=== PATIENT | male | born 1965 | race Caucasian/White ===

== ENCOUNTER 2019-07-20 12:23 | Outpatient (CLI) | payer BC, SELFPAY ==
--- NOTE | 2019-07-20 12:56 | ECHO_ITS ---
Patient Info Name: Telly Granger Age: 54 years : 1965 Gender: Male Ht: 69 in Wt: 220 lbs BSA: 2.24 m2 HR: 70 bpm BP: 138 / 77 mmHg Heart Rhythm: Sinus Rhythm Technical Quality: Fair Exam Date: 07/20/2019 1:01 PM Exam Location: [facility] Patient Status: Outpatient Admit Date: 07/20/2019 Staff Ordering Physician: Ann Morales MD Underwriter: Josh Wilson RDCS Attending Provider: Ann Morales MD Referring Physician: Carmen WADDELL; Exam Type: CA echo doppler color flow Study Info Indications R06.02 - Shortness of breath Complete two-dimensional, color flow and Doppler transthoracic echocardiogram is performed. Strain analysis performed. History/Risk Factors Shortness of breath. Summary 1. Left ventricular chamber dimension is normal. 2. Left ventricular systolic function is normal, estimated at 60-65%. 3. The left ventricular diastolic function is normal. 4. E/e' 8 is minimally elevated. 5. Global longitudinal strain is normal at -17.8%. 6. There is trivial pericardial effusion. Left Ventricle E/e' 8 is minimally elevated. Global longitudinal strain is normal at -17.8%. Left ventricular chamber dimension is normal. Left ventricular systolic function is normal, estimated at 60-65%. The left ventricular diastolic function is normal. Right Ventricle Right ventricular chamber dimension is normal. Right ventricular systolic function is normal. Left Atria Left atrial chamber dimension is normal. Right Atria Right atrial chamber dimension is normal. Aortic Valve The aortic valve is probable trileaflet. There is no aortic valve stenosis. There is no aortic valve regurgitation. Pulmonic Valve There is no pulmonic regurgitation. Mitral Valve There is no mitral valve stenosis. There is no mitral valve regurgitation. Tricuspid Valve There is no tricuspid valve regurgitation. Pericardium/Pleural There is trivial pericardial effusion. Inferior Vena Cava Normal inferior vena cava with >50% collapse upon inspiration consistent with normal right atrial pressure, 5 mmHg. Aorta The aortic root size at the sinus of Valsalva is normal. Left Ventricular Outflow Tract Name Value Normal LVOT 2D LVOT Diameter 2.0 cm LVOT Doppler LVOT Peak Gradient 5 mmHg LVOT Mean Gradient 2 mmHg LVOT VTI 22 cm LVOT VTI/AV VTI Ratio 0.8 LVOT Stroke Volume 72 ml LVOT CO 4.7 l/min LVOT CI 2.1 l/min/m2 Mitral Valve Name Value Normal MV Doppler MV [place] 394 cm/s2 MV PHT 63 ms MV Area (PHT)
== END 2019-07-20 12:24 | disposition home or self-care (01) ==
PROVIDERS: PCP Family Medicine; Visit Provider Internal Medicine Critical Care Medicine
DX: R06.02 Shortness of breath (principal)
CPT/HCPCS: 93306

== ENCOUNTER 2020-01-29 16:21 | Outpatient (CLI) | payer BC, SELFPAY ==
--- NOTE | ~2020-01-29 | XR_ITS ---
XR foot RT min 3V DATE: 01/29/2020 16:39 INDICATION: Right foot pain, swelling for 4 weeks TECHNIQUE: 4 views COMPARISON: None FINDINGS: There is joint space narrowing and spurring at the first metatarsophalangeal joint. There is a nondisplaced mid to distal second metatarsal shaft fracture. No other fracture or disloca tion, periosteal reaction or bone destruction. Os tibiale externum. IMPRESSION: Nondisplaced fracture of the second metatarsal shaft Osteoarthritis at first metatarsophalangeal joint Reviewed, dictated and finalized at location A.
== END 2020-01-29 16:22 | disposition home or self-care (01) ==
LOC: ANHIMG 16:24
PROVIDERS: PCP Family Medicine; Visit Provider Physician Assistant
DX: M79.671 Pain in right foot (principal); S92.324A Nondisplaced fracture of second metatarsal bone, right foot, initial encounter for closed fracture; M19.071 Primary osteoarthritis, right ankle and foot
CPT/HCPCS: 73630

== ENCOUNTER 2020-08-26 09:48 | Outpatient (CLI) | payer BC, SELFPAY | END 2020-08-26 09:49 | disposition home or self-care (01) | LOC: ANHCOVIDVC 09:48 | PROVIDERS: PCP Family Medicine | DX: Z23 Encounter for immunization (principal) | CPT/HCPCS: 0001A; 91300 ==

== ENCOUNTER 2020-09-16 09:45 | Outpatient (CLI) | payer BC, SELFPAY | END 2020-09-16 09:46 | disposition home or self-care (01) | LOC: ANHCOVIDVC 09:45 | PROVIDERS: PCP Family Medicine | DX: Z23 Encounter for immunization (principal) | CPT/HCPCS: 0002A; 91300 ==

== ENCOUNTER 2020-09-18 12:14 | Emergency (ER) | payer BC, SELFPAY ==
--- NOTE | ~2020-09-18 | CT_ITS ---
EXAMINATION: CT abdomen pelvis wo con DATE: 09/18/2020 15:32 INDICATION: Left lower quadrant abdominal pain. TECHNIQUE: Computed tomography (CT) of the abdomen and pelvis was performed without intravenous contr ast. Automated exposure control and iterative reconstruction technique were employed. The dose-length product was 902.21 mGy-cm. COMPARISON: Chest CT 03/24/2019 FINDINGS: The visualized portions of the lung bases demonstrate focal severe emphysema in right lung. There is mild atelectasis bilaterally. No pleural effusion. The heart size is normal. No pericardial effusion. The liver, gallbladder, spleen, pancreas, and adrenal glands are normal. There is severe a trophy of right kidney. There is a 5.9 cm cyst in left kidney. There is no urolithiasis. The prostate is mildly enlarged. There are scattered diverticula in the colon. There is fat stranding around a di verticulum of sigmoid colon with local bowel wall thickening, consistent with diverticulitis. There a re no dilated loops of bowel. The appendix is not visualized. There are no pathologically enlarged ly mph nodes. There is no free intraperitoneal fluid. There is a small left inguinal hernia containing f at. There is severe lower lumbar spondylosis. IMPRESSION: 1. Acute sigmoid diverticulitis. No perforation or abscess. Reviewed, dictated and finalized at location A.
[2020-09-18 12:27] VITALS: BP 130/85; PULSE 116; RESP 20; TEMP 36.2; O2SAT 97
[2020-09-18 12:42] LABS: Basophils Percent Auto 0.2 % (0.2-1.2); Eosinophils Absolute Auto 0.1 K/mm3 (0-0.3); Eosinophils Percent Auto 0.8 % (0-4.4); Hematocrit 46.4 % (42.0-52.0); Hemoglobin 15.7 g/dL (14.0-18.0); Immature Granulocyte Absolute 0.07 K/mm3 (0.00-0.031); Immature Granulocyte Percent A 0.5 % (0-0.5); Lymphocytes Absolute Auto 1.81 K/mm3 (0.9-3.2); Lymphocytes Percent Auto 13.4 % (18.3-44.2); Mean Corpuscular HGB Conc 33.8 g/dl (32-36); Mean Corpuscular Hemoglobin 31.8 pg (26-34); Mean Corpuscular Volume 93.9 fl (80-100); Mean Platelet Volume 11.1 fl (7.4-10.4); Monocytes Absolute Auto 1.3 K/mm3 (0.1-0.6); Monocytes Percent Auto 9.3 % (2.6-8.5); Neutrophils Absolute Auto 10.2 K/mm3 (1.3-6.7); Neutrophils Percent Auto 75.8 % (45.5-73.1); Platelet Count Result 183 k/mm3 (150-375); Red Blood Count 4.94 M/mm3 (4.6-6.20); Red Cell Distribution Width 12.5 % (11.5-14.5); White Blood Count 13.5 K/mm3 (4.5-10.0)
[2020-09-18 12:57] LABS: Alanine Aminotransferase 18 U/L (4-50); Albumin Level 4.3 g/dL (3.5-5.1); Alkaline Phosphatase 92 U/L (38-126); Anion Gap 9 mmol/L (8-16); Aspartate Amino Transferase 19 U/L (17-59); Bilirubin,Total 0.9 mg/dL (0.2-1.3); Blood Urea Nitrogen 16 mg/dL (9-20); Carbon Dioxide 22 mmol/L (22-30); Chloride 107 mmol/L (98-107); Estimated CRCL calculation 72 ml/min; Estimated Glomerular Filt Rate > 60; Glucose 107 mg/dL (75-110); Lipase 37 U/L (23-300); Potassium 3.7 mmol/L (3.4-5.0); Sodium 138 mmol/L (137-145)
--- NOTE | 2020-09-18 13:52 | ED.ABDPAIN ---
HPI - Abdominal Pain General Chief Complaint: Abdominal Pain Stated Complaint: abd pain Time Seen by Provider: 09/18/20 13:45 Source: patient Mode of arrival: ambulatory Limitations: no limitations History of Present Illness HPI narrative: 55-year-old male History of hypertension, right-sided bronchial atresia, possibly IBS and an appendectomy many years ago He had some diverticulosis incidentally noted on a chest CT scan done at [facility] and he has had some increase in his chronic abdominal pains since taking a course of antibiotics a year ago Now complains of a 1 day history of left lower quadrant abdominal pain and having urgency to have frequent small bowel movements, which do not alleviate his symptoms There is no fever, no blood in the stool He denies any urinary symptoms, although because his appetite has been diminished he is voiding less frequently than usual, but there is no hematuria or dysuria Related Data Home Medications Medication Instructions Recorded Confirmed atorvastatin 40 mg tablet 40 mg PO DAILY 07/07/19 09/18/20 lisinopril 20 mg tablet 20 mg PO DAILY 07/07/19 09/18/20 Allergies Allergy/AdvReac Type Severity Reaction Status Date / Time No Known Allergies Allergy Verified 09/18/20 12:29 Review of Systems Review of Systems: All systems reviewed & are unremarkable except as noted in HPI and below Constitutional: Constitutional: Reports no additional constitutional complaints, Denies chills, Denies fever(s) and Denies headache(s) ENT: Denies headache(s) and Denies sore throat Cardiovascular: Cardiovascular: Denies chest pain and Denies dyspnea Respiratory: Respiratory: Reports cough and Denies dyspnea Gastrointestinal: Gastrointestinal: Reports abdominal pain, Reports bloating, Denies diarrhea and Denies vomiting Genitourinary: Genitourinary: Denies dysuria and Denies urinary frequency Musculoskeletal: Musculoskeletal: Denies deformity, Denies arthralgias, Denies joint swelling and Denies numbness Integumentary/Breasts: Skin/Breast: Denies rash and Denies wounds Neurologic: Denies headache(s), Denies focal weakness and Denies numbness Psychiatric: Psychiatric: Reports no additional psychiatric complaints Endocrine: Endocrine: Reports no additional endocrine complaints Hematologic/Lymphatic: Hematologic/Lymphatic: Reports no additional hematologic/lymphatic complaints Allergic/Immunologic: Allergic/Immunologic: Reports no additional allergic/immunologic complaints [facility] Past Medical History Medical History (Updated 09/18/20 @ 17:48 by Isaiah Becker MD) HTN (hypertension) Metatarsal stress fracture of right foot Pneumonia SOB (shortness of breath) on exertion Surgical History Surgical History History of appendectomy [place] teeth extracted Family History Family History Other Cancer Diabetes mellitus Heart disease Hypertension Social History Social History Social History: pt stop smoking 10 months ago. Pt started vaping, which lasted for 6 weeks. Smoking status: Former smoker Tobacco type: cigarettes Smoking end date: 06/17/18 Alcohol intake: current Drinks per week: 5 Substance use: unknown Gender identity (if verbalized by the patient): Male Exam Const: General: cooperative, no acute distress and alert Orientation/consciousness: patient oriented x3 (alert) HENMT: Head: normal to inspection, normocephalic and atraumatic Ears: external ears normal General nose exam: no epistaxis Eyes: Conjunctivae: conjunctivae normal EOM: EOMs intact bilaterally Neck: Neck: normal visual inspection, supple and no JVD Resp: Effort & Inspection: normal respiratory effort and not labored Auscultation: other (BS =) Cardio: Rate: regular rate Rhythm: regular rhythm GI: GI Palp: Y
[2020-09-18 15:15] LABS: Add Urine Microscopic? YES; Appearance Urine Cloudy (Clear); Bilirubin Urine Negative (Negative); Blood Urine Negative (Negative); Color Urine Yellow (Yellow); Glucose Urine UA Negative (Negative); Ketones Urine 1+ mg/dL (Negative); Leukocyte Esterase Ur Negative LEU/UL (Negative); Mucus Urine Heavy /lpf; Nitrate Urine Negative (Negative); Protein Urine 1+ mg/dL (Negative); RBC Urine 0-2 /hpf (0-2); Specific Grav Ur 1.024 (1.001-1.035); Squamous Epithelial Cell Urine Rare /hpf (Few); Urobilinogen Urine Negative mg/dL (<2.0); WBC Urine 0-3 /hpf
[2020-09-18] MEDS: LACTATED RINGERS 1,000 ML 999 ML IV CONT (15:18)
[2020-09-18] MEDS: CIPROFLOXACIN 400 MG/D5W 200ML 200 ML 200 MG IVPB (17:29)
[2020-09-18] MEDS: metroNIDAZOLE 500 MG/ISO 100ML 500 MG/100 ML BAG 100 MG IVPB (17:50)
[2020-09-18 19:45] VITALS: BP 134/74; PULSE 98; RESP 16; O2SAT 99
== END 2020-09-18 19:47 | disposition home or self-care (01) ==
PROVIDERS: Emergency Provider Emergency Medicine; PCP Family Medicine
DX: K57.32 Diverticulitis of large intestine without perforation or abscess without bleeding (principal); I10 Essential (primary) hypertension; Z87.891 Personal history of nicotine dependence
CPT/HCPCS: 36415; 74176; 80053; 81001; 83690; 85025; 96365; 96367; 96368; 99284; J0744; J7120

== ENCOUNTER → 2020-10-28 01:03 | Outpatient (CLI) | payer BC, SELFPAY ==
[2020-10-28 19:36] LABS: SARS-CoV-2 RNA PCR Negative
== END ==
PROVIDERS: PCP Family Medicine; Visit Provider Internal Medicine Gastroenterology
DX: Z20.822 Contact with and (suspected) exposure to COVID-19 (principal)
CPT/HCPCS: C9803; U0003; U0005

== ENCOUNTER 2020-10-31 02:15 | Day surgery (SDC) | payer BC, SELFPAY ==
[2020-10-20 09:37] VITALS: BMI 31.8
--- NOTE | 2020-10-31 09:50 | P.CONGI_ITS ---
Assessment and Plan Assessment and plan (1) Diverticulitis: Code(s): K57.92 - Diverticulitis of intestine, part unspecified, without perforation or abscess without bleeding Status: Acute Assessment and Plan: Patient is status post recent bout of left lower quadrant pain CT scan consistent with diverticulitis. Marked improvement after antibiotics. Plan is for high-fiber diet colonoscopy will be performed further recommendations after endoscopy. GI Consult Note Consult date/time: 10/31/20 09:50 HPI: Telly Granger is a 55 year old male seen in evaluation at the request of Dr. Jasen Joe. Patient had an episode of left lower quadrant abdominal pain [address] scan confirmed diverticulitis. Patient been treated with broad-spectrum antibiotic coverage in has noticed marked diminishment of pain over the last 1 month. States his bowel habits continue to show fecal urgency. When he has to go he has to go very quickly. He denies any bleeding. Denies any fever. He notices mild abdominal discomfort on deep palpation left lower quadrant. Family history is noncontributory. He denies any weight loss. He has been followed for pulmonary condition in the past. Patient presents today for colonoscopy having had diverticulitis 1 month ago. Review of Systems Review of Systems: All systems reviewed & are unremarkable except as noted in HPI and below PMFSH Past Medical History Medical History (Updated 10/31/20 @ 09:52 by Isaiah Seals MD) HTN (hypertension) Metatarsal stress fracture of right foot Pneumonia SOB (shortness of breath) on exertion Surgical History Surgical History History of appendectomy [place] teeth extracted Family History Family History Other Cancer Diabetes mellitus Heart disease Hypertension Social History Social History Social History: pt stop smoking 10 months ago. Pt started vaping, which lasted for 6 weeks. Smoking status: Former smoker Tobacco type: cigarettes Smoking end date: 06/17/18 Alcohol intake: current Drinks per week: 5 Alcohol use details: DEPENDS ON WEEKEND Substance use: unknown Living arrangements: with family Gender identity (if verbalized by the patient): Male Spiritual care concerns: No Meds Home Medications and Allergies Home Medications Medication Instructions Recorded Confirmed Type atorvastatin 40 mg tablet 40 mg PO DAILY 07/07/19 10/20/20 History lisinopril 20 mg tablet 20 mg PO DAILY 07/07/19 10/20/20 History sod picosulf 10 mg-magnes 3.5 160 ml PO BID #160 ml 09/30/20 Rx gram-citric 12 gram/160 mL oral solution Allergies Allergy/AdvReac Type Severity Reaction Status Date / Time No Known Allergies Allergy Verified 10/20/20 09:36 Exam Narrative: Exam Narrative: Physical exam reveals patient be alert. Vital signs are stable. HEENT exam is unremarkable. Patient is anicteric. Lungs are clear to auscultation and percussion. Heart is without murmur or extra sounds. Abdominal exam bowel sounds are present soft nontender with no organomegaly. Digital external rectal exam is normal.
[2020-10-31 09:56] VITALS: BP 135/73; PULSE 95; RESP 18; TEMP 36.9; O2SAT 98
[2020-10-31] MEDS: LACTATED RINGERS 1,000 ML 150 ML IV CONT (10:01)
--- NOTE | 2020-10-31 10:09 | P.PNAN_ITS ---
Anes - Initial Pre Proc Eval Procedure: Operation Date: 10/31/20 11:15 Proposed Procedures p Colonoscopy - Isaiah Seals MD Date/Time: 10/31/20 10:09 Surgeon: Isaiah Seals MD Pre Op Diagnosis: Diverticulitis Patient Data Age: 55 Gender: M Height: 5 ft 8 in Weight: 98.8 kg Last Vital Signs Temp 98.5 F 10/31/20 09:56 Pulse 95 10/31/20 09:56 Resp 18 10/31/20 09:56 BP 135/73 10/31/20 09:56 Pulse Ox 98 10/31/20 09:56 Allergies Allergy/AdvReac Type Severity Reaction Status Date / Time No Known Allergies Allergy Verified 10/31/20 09:54 Home Medications Medication Instructions Recorded Confirmed Type atorvastatin 40 mg tablet 40 mg PO DAILY 07/07/19 10/31/20 History lisinopril 20 mg tablet 20 mg PO DAILY 07/07/19 10/31/20 History sod picosulf 10 mg-magnes 3.5 160 ml PO BID #160 ml 09/30/20 Rx gram-citric 12 gram/160 mL oral solution Patient hx anesthesia problems: none Family hx anesthesia problems: none PMFSH Past Medical History Medical History (Updated 10/31/20 @ 09:52 by Isaiah Seals MD) HTN (hypertension) Metatarsal stress fracture of right foot Pneumonia SOB (shortness of breath) on exertion Surgical History Surgical History History of appendectomy [place] teeth extracted Family History Family History Other Cancer Diabetes mellitus Heart disease Hypertension Social History Social History Social History: pt stop smoking 10 months ago. Pt started vaping, which lasted for 6 weeks. Smoking status: Former smoker Tobacco type: cigarettes Smoking end date: 06/17/18 Alcohol intake: current Drinks per week: 5 Alcohol use details: DEPENDS ON WEEKEND Substance use: unknown Living arrangements: with family Gender identity (if verbalized by the patient): Male Spiritual care concerns: No Anes - Eval Final PreProcedure Day of Procedure 10/31/20 10:09 Patient weight: obese Heart: regular rate and rhythm Lungs: clear to auscultation Airway: Mallampati scale class II Neurological: alert and oriented Last oral intake: >/= 8 hours ASA classification: III Emergent: no Anesthetic plan: proceed Anesthesia type and monitoring: general GIVS and standard monitoring Informed Consent: The patient's anesthetic plan and its attendant risks and benefits were discussed with the patient/family/POA. Questions were solicited and answers provided to the satisfaction of the patient/family/POA.
[2020-10-31 10:36] VITALS: BP 103/61; PULSE 75; RESP 21; O2SAT 100
[2020-10-31 10:46] VITALS: BP 118/62; PULSE 65; RESP 22; O2SAT 100
[2020-10-31 10:56] VITALS: BP 117/71; PULSE 65; RESP 23; O2SAT 100
== END 2020-10-31 11:08 | disposition home or self-care (01) ==
PROVIDERS: PCP Family Medicine; Visit Provider Internal Medicine Gastroenterology
PROC: 0DJD8ZZ Inspection of Lower Intestinal Tract, Via Natural or Artificial Opening Endoscopic (ICD-10-PCS; CPT 45378; principal; 2020-10-31 11:15)
DX: Z12.11 Encounter for screening for malignant neoplasm of colon (principal); K57.30 Diverticulosis of large intestine without perforation or abscess without bleeding; K64.8 Other hemorrhoids; Z87.19 Personal history of other diseases of the digestive system; I10 Essential (primary) hypertension; Z87.891 Personal history of nicotine dependence
CPT/HCPCS: 45378; J2704; J7120

== ENCOUNTER 2021-05-29 12:27 | Outpatient (CLI) | payer BC, SELFPAY ==
--- NOTE | 2021-05-29 16:07 | WPDSIXMINUTE ---
Six Minute Walk Procedure Procedure Performed Pulmonary Stress Test (6 min walk) Six Minute Walk This is a 6 minute walk test. The test was performed and interpreted in accordance with the 2014 ERS/ATS task force guidelines. Findings: The patient's resting room air oxygen saturation measured by pulse oximetry was 96% and heart rate was 99 bpm. Patient ambulated for 457 meters and oxygen saturation remained 93 to 97%. Heart rate at the end of the study was 113 bpm. The patient did not qualify for supplemental oxygen at rest or with ambulation. There are no prior studies for comparison.
--- NOTE | 2021-05-29 16:08 | P.PCNPFT_ITS ---
PFT Procedure Performed PFT Procedure Performed Spirometry with Pre/Post Bronchodilator Plethysmography (Lung Vol) Diffusing Cap (DLCO) Flow Vol Loop PFT Interpretation This is a pulmonary function test with pre and post-bronchodilator spirometry, plethysmography and diffusing capacity. The test was performed and results interpreted in accordance with the 2019 and 2005 ATS/ERS Task Force guidelines respectively using the Global Lung Function Initiative-2012 reference equations. Patient demonstrated good effort and cooperation. Reproducibility criteria were met. The quality of the pre bronchodilator spirometry maneuver was Grade A and post bronchodilator spirometry maneuver was Grade A. Findings: Spirometry: there is decreased maximal expiratory airflow at low lung volumes with concave expiratory flow tracing. The contour the inspiratory flow tracing is normal. The pre bronchodilator FVC is 3.21 L, 72% predicted. The pre bronchodilator FEV1 is 2.08 L, 60% predicted. The FEV1: FVC ratio 65%. The post bronchodilator FVC is 3.27 L, representing a 2% increase. The post bronchodilator FEV1 is 2.20 L, representing a 6% increase. The post bronchodilator FEV1: FVC ratio is 67%. Plethysmography: The total lung capacity is 9.14 L, 138% predicted. Functional residual capacity is 6.41 L, 189% predicted. The residual volume is 5.87 L, 283% predicted. Diffusing capacity: The absolute diffusion capacity is 21.3, 75% predicted. The diffusing capacity corrected for alveolar volume is 4.70, 106% predicted. Impression: There is a moderate obstructive abnormality without significant improvement after inhaling a single dose of albuterol. The increase in residual volume is consistent with air trapping from an obstructive abnormality. Hyperinflation is present is demonstrated by the increase in functional residual capacity and total lung capacity and is consistent with an obstructive abnor mality. The diffusing capacity is normal. There are no prior studies for comparison
== END 2021-05-29 12:28 | disposition home or self-care (01) ==
LOC: ANHPFT 12:29
PROVIDERS: PCP Family Medicine; Visit Provider Internal Medicine Pulmonary Disease
DX: R06.02 Shortness of breath (principal); Z87.891 Personal history of nicotine dependence
CPT/HCPCS: 94060; 94618; 94726; 94729

== ENCOUNTER 2023-11-27 08:28 | Emergency (ER) | payer BC, SELFPAY ==
--- NOTE | 2023-11-27 08:42 | ED.ABDPAIN ---
HPI - Abdominal Pain General Chief Complaint: Abdominal Pain Stated Complaint: Diverticulitis flare up Time Seen by Provider: 11/27/23 08:41 Source: patient Mode of arrival: ambulatory Limitations: no limitations History of Present Illness HPI narrative: Telly is a 58-year-old male patient presenting to the emergency room today with complaints of left-sided abdominal pain that started yesterday.. He believes he is having a diverticulitis flare up. States he had a falling out with his primary care doctor so he currently does not have a primary care provider. Is having frequent stools with mucus in his stools. Denies any diarrhea or blood in his stool. States pain is in only in the left lower quadrant. Had fever last night of 100.8F. Denies any nausea or vomiting. Last bowel movement was prior to arrival. Reports his pain a 3/10 currently. Related Data Home Medications Medication Instructions Recorded Confirmed No Home Medications 11/27/23 11/27/23 Allergies Allergy/AdvReac Type Severity Reaction Status Date / Time No Known Allergies Allergy Verified 11/27/23 08:46 Review of Systems Review of Systems: Pertinent positives per HPI. Patient denies any rash, headache, visual changes, dizziness, cough, runny nose, sore throat, shortness of breath, chest pain, palpitations, nausea, vomiting, diarrhea, constipation, or any urinary issues. [facility] Past Medical History Medical History HTN (hypertension) Metatarsal stress fracture of right foot Pneumonia SOB (shortness of breath) on exertion Surgical History Surgical History History of appendectomy [place] teeth extracted Family History Family History Other Cancer Diabetes mellitus Heart disease Hypertension Social History Social History Social History: pt stop smoking 10 months ago. Pt started vaping, which lasted for 6 weeks. Smoking packs per day: 1 Smoking cigarettes per day: 20.0 Years smoked: 40 Smoking pack-years: 40.00 Smoking status: Former smoker Tobacco type: cigarettes Smoking end date: 06/17/18 Alcohol intake: current Drinks per week: 5 Alcohol use details: DEPENDS ON WEEKEND Substance use: unknown Living arrangements: with family Occupation/Education: occupation Gender identity (if verbalized by the patient): Male Spiritual care concerns: No Comments At the time of my signature, I reviewed and agree with the nursing past medical, surgical, social, and family history. There is no relevant family history pertinent to the patient complaint. Exam Narrative: General: Well-developed, well nourished, in no apparent distress. Head: Normocephalic, atraumatic. Cardio: Regular rate and rhythm, s1 and s2 normal, no murmur appreciated. Resp: Clear to auscultation bilaterally, no rhonchi, rales, wheezing or rubs. Abdomen: Soft, pliable, bowel sounds present in all quadrants, left lower quadrant tender to palpation, no organomegly, no CVAT tenderness. Course Course Emergency Course: Portions of this record may have been created with voice recognition software. Level of Care: Express Care Visit Vital Signs Vital signs: Vital signs reviewed MDM - Abdominal Pain MDM Narrative Medical decision making narrative: At the time of visit patient is resting comfortably on the exam table. Patient appears to be nontoxic. Plan: Patient has left lower quadrant abdominal pain with history of diverticulitis. Had fever yesterday and has mucus in his stools-with multiple stools. Denies any blood in his stools. Recommend transfer to the ER for further evaluation-labs and CT to rule out complicated diverticulitis with verses uncomplicated diverticulitis. Patient is agreeable t
[2023-11-27 08:46] VITALS: BP 136/76; PULSE 93; RESP 16; TEMP 37; O2SAT 97
== END 2023-11-27 09:15 | disposition short-term general hospital (02) ==
PROVIDERS: Emergency Provider Nurse Practitioner Family; Referring Provider Emergency Medicine
DX: R10.32 Left lower quadrant pain (principal); Z87.19 Personal history of other diseases of the digestive system; Z87.891 Personal history of nicotine dependence; I10 Essential (primary) hypertension
CPT/HCPCS: 99212; G0463

== ENCOUNTER 2023-11-27 09:28 | Emergency (ER) | payer BC, SELFPAY ==
--- NOTE | ~2023-11-27 | CT_ITS ---
CT of the Abdomen and Pelvis: Indication: Abdominal pain Technique: 2.5 mm axial scans were obtained through the abdomen and pelvis following intravenous adm inistration of 100 cc of Omnipaque 350. Dose reduction technique was used on this scan by utilizing a utomated exposure control and iterative reconstruction technique. The dose-length product (DLP) was 1 040.82 mGy-cm. COMPARISON: 09/18/2020 Findings: Scans through the lung bases demonstrates stable hyperlucency and expansion of the right u pper lobe. The liver, spleen, pancreas, gallbladder, and adrenal glands are within normal limits. There is sever e chronic atrophy of a markedly diminutive right kidney. There is compensatory hypertrophy of the lef t kidney with left renal cyst present. There are atherosclerotic calcifications of the aorta. No lym phadenopathy. There is inflammatory change and focal bowel wall thickening centered about a diverticulum at the mid sigmoid colon, compatible with acute diverticulitis. No abscess or definite free air. No bowel obstr uction. Images through the pelvis were performed. Urinary bladder unremarkable. Prostate gland mildly enlarge d. No ascites. Impression: Acute sigmoid diverticulitis, as detailed above. No abscess or free air. Chronic markedly diminutive and atrophic right kidney with compensatory hypertrophy of the left kidne y. Stable hyperlucency and expansion of the visualized right upper lobe, which could reflect emphysemato us change of the right upper lobe. Reviewed, dictated and finalized at [facility]. Impression: Acute sigmoid diverticulitis, as detailed above. No abscess or free air. Chronic markedly diminutive and atrophic right kidney with compensatory hypertr ophy of the left kidney. Stable hyperlucency and expansion of the visualized right upper lobe, which cou ld reflect emphysematous change of the right upper lobe.
[2023-11-27 09:34] VITALS: BP 145/85; PULSE 84; RESP 16; TEMP 36.3; O2SAT 98
--- NOTE | 2023-11-27 09:36 | ED.ABDPAIN ---
HPI - Abdominal Pain General Chief Complaint: Abdominal Pain Stated Complaint: abd pain Time Seen by Provider: 11/27/23 09:34 Source: patient Mode of arrival: ambulatory Limitations: no limitations History of Present Illness HPI narrative: This is a 58-year-old male who presents to the ED for chief complaint of left-sided abdominal pain started yesterday. Patient reports that this feels like a flare-up of his diverticulitis. Reports the pain is in the left lower quadrant. He is having frequent stools and has occasional mucus. Reports fever of 100.8? last night. Denies diarrhea or any GI bleeding symptoms. Denies nausea, vomiting, chest pain, shortness of breath, cough , urinary symptoms, flank pain. Related Data Allergies Allergy/AdvReac Type Severity Reaction Status Date / Time No Known Allergies Allergy Verified 11/27/23 09:37 Review of Systems Review of Systems: All systems as dictated in [facility] PMFSH Past Medical History Medical History HTN (hypertension) Metatarsal stress fracture of right foot Pneumonia SOB (shortness of breath) on exertion Surgical History Surgical History History of appendectomy [place] teeth extracted Family History Family History Other Cancer Diabetes mellitus Heart disease Hypertension Social History Social History Social History: pt stop smoking 10 months ago. Pt started vaping, which lasted for 6 weeks. Smoking packs per day: 1 Smoking cigarettes per day: 20.0 Years smoked: 40 Smoking pack-years: 40.00 Smoking status: Former smoker Tobacco type: cigarettes Smoking end date: 06/17/18 Alcohol intake: current Drinks per week: 5 Alcohol use details: DEPENDS ON WEEKEND Substance use: unknown Living arrangements: with family Occupation/Education: occupation Gender identity (if verbalized by the patient): Male Spiritual care concerns: No Exam Narrative: GENERAL: Well-appearing, well-nourished, and in no acute distress. HEAD: Normocephalic, atraumatic. EYES: PERRLA and EOMI. ENT: Nares clear, no rhinorrhea or epistaxis. Mucous membranes moist. Oropharynx without tonsillar hypertrophy exudate or other lesions. NECK: Supple. No adenopathy or masses. CHEST: No respiratory distress. Clear to auscultation. No wheezes rales or rhonchi HEART: Regular rate and rhythm. No murmur heard. Normal peripheral pulses. ABDOMEN: Mild distention. Left lower quadrant tenderness present. Soft, otherwise nontender, normal active bowel sounds. MSK: Normal range of motion. No edema. SKIN: Warm, dry, no rash. NEURO: Alert and oriented x4. No focal deficits. PSYCH: Normal mood and affect. Course Vital Signs Vital signs: Vital Signs Temperature 97.4 F L 11/27/23 09:34 Pulse Rate 84 11/27/23 09:34 Respiratory Rate 16 11/27/23 09:34 Blood Pressure 145/85 H 11/27/23 09:34 Pulse Oximetry 98 11/27/23 09:34 Temperature 97.4 F L 11/27/23 09:34 Pulse Rate 84 11/27/23 09:34 Respiratory Rate 16 11/27/23 09:34 Blood Pressure 145/85 H 11/27/23 09:34 Pulse Oximetry 98 11/27/23 09:34 MDM - Abdominal Pain MDM Narrative Medical decision making narrative: This is a 58 year male with history of diverticulitis and presents for flare up of this today. Vitals are normal. Exam does show left lower quadrant tenderness. Otherwise well-appearing on exam. lab work remarkable for CT abdomen and pelvis with IV contrast: Acute sigmoid diverticulitis, as detailed above. No abscess or free air. Chronic markedly diminutive and atrophic right kidney with compensatory hypertrophy of the left kidney. Stable hyperlucency and expansion of the visualized right upper lobe, which could reflect emphysemat
[2023-11-27 10:02] LABS: Basophils Percent Auto 0.3 % (0.2-1.2); Eosinophils Absolute Auto 0.2 K/mm3 (0-0.3); Eosinophils Percent Auto 1.3 % (0-4.4); Hematocrit 48.8 % (42.0-52.0); Hemoglobin 16.5 g/dL (14.0-18.0); Immature Granulocyte Absolute 0.05 K/mm3 (0.00-0.031); Immature Granulocyte Percent A 0.4 % (0-0.5); Lymphocytes Absolute Auto 1.94 K/mm3 (0.9-3.2); Lymphocytes Percent Auto 14.7 % (18.3-44.2); Mean Corpuscular HGB Conc 33.8 g/dl (32-36); Mean Corpuscular Hemoglobin 32.2 pg (26-34); Mean Corpuscular Volume 95.3 fl (80-100); Mean Platelet Volume 11.7 fl (7.4-10.4); Monocytes Absolute Auto 1.1 K/mm3 (0.1-0.6); Monocytes Percent Auto 8.6 % (2.6-8.5); Neutrophils Absolute Auto 9.9 K/mm3 (1.3-6.7); Neutrophils Percent Auto 74.7 % (45.5-73.1); Platelet Count Result 191 k/mm3 (150-375); Red Blood Count 5.12 M/mm3 (4.6-6.20); Red Cell Distribution Width 12.8 % (11.5-14.5); White Blood Count 13.2 K/mm3 (4.5-10.0)
[2023-11-27 10:07] LABS: Alanine Aminotransferase 12 U/L (6-50); Albumin Level 4.5 g/dL (3.5-5.1); Alkaline Phosphatase 87 U/L (38-126); Anion Gap 8 mmol/L (4-12); Aspartate Amino Transferase 16 U/L (17-59); Bilirubin,Total 1.1 mg/dL (0.2-1.3); Blood Urea Nitrogen 17 mg/dL (9-20); Calcium 9.4 mg/dL (8.4-10.2); Carbon Dioxide 23 mmol/L (22-30); Chloride 108 mmol/L (98-107); Estimated CRCL calculation 64 ml/min; Estimated Glomerular Filt Rate 57; Glucose 107 mg/dL (65-110); Lipase 45 U/L (23-300); Potassium 4.1 mmol/L (3.4-5.0); Sodium 139 mmol/L (137-145)
[2023-11-27 10:17] LABS: Add Urine Microscopic? YES; Appearance Urine Clear (Clear); Bilirubin Urine Negative (Negative); Blood Urine Negative (Negative); Color Urine Dark Yellow (Yellow); Glucose Urine UA Negative (Negative); Ketones Urine Trace mg/dL (Negative); Leukocyte Esterase Ur Negative LEU/UL (Negative); Nitrate Urine Negative (Negative); Protein Urine 1+ mg/dL (Negative); Specific Grav Ur 1.028 (1.001-1.035); pH Urine 5.5 (5.0-9.0)
[2023-11-27 11:04] VITALS: BP 144/87; PULSE 88; RESP 17; O2SAT 99
== END 2023-11-27 11:05 | disposition home or self-care (01) ==
PROVIDERS: Emergency Medicine; Emergency Provider Physician Assistant
DX: K57.32 Diverticulitis of large intestine without perforation or abscess without bleeding (principal); I10 Essential (primary) hypertension; Z87.01 Personal history of pneumonia (recurrent); Z87.891 Personal history of nicotine dependence; N26.1 Atrophy of kidney (terminal); N28.81 Hypertrophy of kidney
CPT/HCPCS: 36415; 74177; 80053; 81001; 83690; 85025; 99284; Q9967